=== PATIENT | female | born 1985 | race Caucasian/White ===

== ENCOUNTER 2019-02-10 16:36 | Emergency (ER) | payer BC ==
--- NOTE | 2019-02-10 17:01 | PDOC ---
History of Present Illness - General Chief Complaint: Vaginal Bleeding Stated Complaint: 9 weeks with vaginal bleeding Time Seen by Provider: 02/10/19 16:38 History Source: Patient Exam Limitations: No Limitations - History of Present Illness Initial Comments: Christiana Graves is a 33 yo f w a pmh of PCOS who is 9 weeks who comes to the ER with vaginal bleeding. The bleeding began last night. She states it was light spotting, then it stopped all day today. Then it came back later today and noticed that she was passing clots. She thinks that every time she wipes she can see a trace amount of blood. She believes she is done bleeding. She endorses sexual intercourse 2 nights ago. She endorses mild nausea but no emesis. She called her OB - Dr. Sexton - and the inspector semiconductor wafer physician Dr. Andres answered said everything was probably fine and the patient didn't need to come in but the patient was concerned so she came to be evaluated. Denies chest pain, SOB OB: Dr. Johnson PSH: None reported Social Hx: Denies smoking, drinking, or other substance abuse Allergies: NKA, NKDA Past History - Past Medical History Allergies/Adverse Reactions: Allergies Allergy/AdvReac Type Severity Reaction Status Date / Time No Known Allergies Allergy Verified 02/10/19 16:55 Home Medications: Ambulatory Orders NK [No Known Home Medication] 02/10/19 COPD: No Other medical history: PCOS - Psycho Social/Smoking Cessation Hx Smoking History: Never smoked Hx Alcohol Use: No Drug/Substance Use Hx: No Review of Systems - Review of Systems Able to Perform ROS?: Yes Comments:: CONSTITUTIONAL: Absent: fever, no chills, no fatigue EYES: Absent: visual changes ENT: Absent: ear pain, no sore throat CARDIOVASCULAR: Absent: chest pain, no palpitations RESPIRATORY: Absent: cough, no SOB GI: Present: nausea Absent: abdominal pain, no vomiting, no constipation, no diarrhea GENITOURINARY: Present: Vaginal bleeding Absent: dysuria, no frequency, no hematuria MUSKULOSKELETAL: Absent: back pain, no arthralgia, no myalgia SKIN: Absent: rash NEURO: Absent: headache *Physical Exam - Vital Signs Last Vital Signs Temp Pulse Resp BP Pulse Ox 98.1 F 87 18 136/81 100 02/10/19 16:37 02/10/19 16:37 02/10/19 16:37 02/10/19 16:37 02/10/19 16:37 - Physical Exam Comments: GENERAL: Well-appearing, well-nourished. No apparent distress. HEENT: Normocephalic, atraumatic. PERRL, EOM intact. CARDIOVASCULAR: Normal S1, S2. Regular rate and rhythm. PULMONARY: No evidence of respiratory distress. Lungs clear to auscultation bilaterally. No wheezing, rales or rhonchi. ABDOMEN: Soft, non-distended, non-tender. EXTREMITIES: Normal ROM in all four extremities. No gross deformities. SKIN: Warm, dry. No rash NEUROLOGICAL: No focal neurological deficits. ED Treatment Course - LABORATORY CBC & Chemistry Diagram: 02/10/19 17:30 02/10/19 17:30 - RADIOLOGY Radiology Studies Ordered: Category Date Time Status TRANSVAGINAL US PREG [US] Stat Ultrasound 02/10/19 16:38 Ordered Medical Decision Making - Medical Decision Making Christiana Graves is a 33 yo f w a pmh of PCOS who is 9 weeks who comes to the ER with vaginal bleeding. The bleeding began last night. She states it was light spotting, then it stopped all day today. Then it came back later today and noticed that she was passing clots. She thinks that every time she wipes she can see a trace amount of blood. She believes she is done bleeding. She endorses sexual intercourse 2 nights ago. She endorses mild nausea but no emesis. She called her OB - Dr. Sexton - and the inspector semiconductor wafer physician Dr. Andres answered said everything was probably fine and the patient didn't need to come in but the patient was concerned so she came to be evaluated. Denies chest pain, SOB Vital Signs Temp Pulse Resp BP Pulse Ox 98.1 F 87 18 136/81 100 02/10/19 16:37 02/10/19 16:37 02/10/19 16:37 02/10/19 16:37 02/10/19 16:37 DDx IBNLT: Miscarriage - impending vs missed vs incomplete, hemolytic disease of the , electrolyte/metabolic disturbance, UTI/pyloe Plan: Labs, Urine, TVUS, Iv hydration, analgesia, supportive care, re-assess. Labs: Unremarkable. B-HC,359.9 T&S: negative TVUS: Transvaginal obstetrical ultrasound Clinical information: vaginal bleeding An intrauterine gestational sac is noted with a mean diameter of 1.7 cm suggestive of an approximate gestational age of 6 weeks 0 days. No embryonic pole or yolk sac is identified at this time. These findings probably represent an anembryonic gestation/blighted ovum versus less likely an early viable with delayed visualization of those structures. Correlate with beta hCG levels, consider close follow-up sonography. Possible 3 cm intramural leiomyoma within the uterine body ventrally. A complex 2 x 1.7 cm right ovarian cyst is noted. The left ovary appears unremarkable. No Doppler evidence of ovarian torsion, sensitivity 70%. There is no gross adnexal pathology. No free intraperitoneal fluid is seen. Re-assessment: Given the US findings it appears that this patient is likely in the process of miscarrying. Will have the patient follow up with her OB. She has an appointment on Friday Morning with Dr. Johnson. Patient has been instructed to follow up with Dr. Johnson to check the quantitative HCG and to follow up on her type and screen and to administer RHOGAM if necessary. Disposition: Home with OB FU in 2 days. Discharge - Discharge Information Problems reviewed: Yes Clinical Impression/Diagnosis: Incomplete miscarriage Condition: Stable Disposition: HOME - Admission No - Follow up/Referral Referrals: Vinny Johnson MD [Staff Physician] - - Patient Discharge Instructions Patient Printed Discharge Instructions: Dealing With Miscarriage, Threatened Additional Instructions: You came into the ER with vaginal bleeding. We did an ultrasound which showed you might be having a miscarriage. It is very important for you to follow up with your OB doctor on Friday to see what your quantitative B-HCG is and what your type and screen from the bloodwork showed to determine if you need a medication called RHOGAM. Come back to the ER immediately if you strt bleeding profusely, feel weak, pass out or have any other new or worsening concerns. Print Language: KUWAITI - Post Discharge Activity
[2019-02-10 17:04] VITALS: BP 136/81; PULSE 87; TEMP 98.1; BMI 34.7
[2019-02-10] MEDS ORDERED: ACETAMINOPHEN 325 MG TABLET (FP) PO ONE (17:05)
[2019-02-10] MEDS ORDERED: SODIUM CHLORIDE 1,000 ML IV STA (17:05)
[2019-02-10] MEDS ORDERED: ONDANSETRON 4 MG/2 ML VIAL IVPUSH ONE (17:06)
[2019-02-10] MEDS ORDERED: ACETAMINOPHEN 325 MG TABLET (FP) ONE (17:35)
[2019-02-10] MEDS ORDERED: ONDANSETRON 4 MG/2 ML VIAL ONE (17:36)
[2019-02-10 17:50] LABS: BASO % 0.4 % (0-2.0)
[2019-02-10 17:53] LABS: EOS % 1.6 % (0-4.5); HEMATOCRIT 38.9 % (32.4-45.2); HEMOGLOBIN 13.6 GM/dl (10.7-15.3); LYMPH % 22.3 % (8-40); MCH 31.3 pg (25.7-33.7); MCHC 34.9 g/dl (32.0-36.0); MEAN CELL VOLUME 89.6 fl (80-96); MEAN PLT VOLUME 8.5 fl (7.5-11.1); MONO % 5.6 % (3.8-10.2); NEUT % 70.1 % (42.8-82.8); PLATELET COUNT 278 K/MM3 (134-434); RBC 4.35 M/mm3 (3.60-5.2); RDW 11.2 % (11.6-15.6); WHITE BLOOD COUNT 8.4 K/mm3 (4.0-10.8)
[2019-02-10 18:07] LABS: ALBUMIN 4.5 g/dl (3.4-5.0); BILIRUBIN,TOTAL 0.8 mg/dl (0.2-1); CALCIUM 8.8 mg/dl (8.5-10); CREATININE 0.6 mg/dl (0.55-1.3); POTASSIUM 3.6 mmol/L (3.5-5.1); TOT PROT 7.7 g/dl (6.4-8.2)
[2019-02-10 18:11] LABS: INR 1.1 (0.82-1.09); PROTHROMBIN TIME (PATIENT) 12.3 SEC (10.2-13.0)
== END 2019-02-10 18:49 | disposition home or self-care (01) ==
LOC: FER 16:36
PROC: 3E0337Z Introduction of Electrolytic and Water Balance Substance into Peripheral Vein, Percutaneous Approach (ICD-10-PCS; principal; 2019-02-10)
DX: O03.4 Incomplete spontaneous abortion without complication (principal); E28.2 Polycystic ovarian syndrome
CPT/HCPCS: 36415; 76817-TC; 80053; 84702; 85025; 85610; 85730; 86850; 86900; 86901; 99282-25; J7030

== ENCOUNTER 2019-02-13 10:40 | Emergency (ER) | payer BC ==
[2019-02-13 10:57] VITALS: BP 129/76; PULSE 75; TEMP 98.2; BMI 34.7
[2019-02-13] MEDS ORDERED: RHO(D) IMMUNE GLOBULIN 1,500 UNIT DISP.SYRIN IM ONE (11:00)
--- NOTE | 2019-02-13 11:08 | PDOC ---
History of Present Illness - General Chief Complaint: Pain Stated Complaint: VACCINE Time Seen by Provider: 02/13/19 10:53 History Source: Patient Exam Limitations: No Limitations (33y/o F for rhogam infection, RH neg noted on labs. Pt has no complaints) - History of Present Illness Is this a multiple visit Asthma Patient?: No Past History - Travel Traveled outside of the country in the last 30 days: No Close contact w/someone who was outside of country & ill: No - Past Medical History Allergies/Adverse Reactions: Allergies Allergy/AdvReac Type Severity Reaction Status Date / Time No Known Allergies Allergy Verified 02/13/19 10:50 Home Medications: Ambulatory Orders NK [No Known Home Medication] 02/10/19 COPD: No - Reproductive History (#): 1 Para: 0 Spontaneous : 0 - Psycho Social/Smoking Cessation Hx Smoking History: Never smoked Hx Alcohol Use: No Drug/Substance Use Hx: No Review of Systems - Review of Systems Able to Perform ROS?: Yes Is the patient limited Russian proficient: No Constitutional: No: Chills, Fever ABD/GI: No: Abdominal Distended, Abdominal cramping *Physical Exam - Vital Signs Last Vital Signs Temp Pulse Resp BP Pulse Ox 98.2 F 75 18 129/76 99 02/13/19 10:53 02/13/19 10:53 02/13/19 10:53 02/13/19 10:53 02/13/19 10:53 - Physical Exam General Appearance: Yes: Nourished Neurologic: positive: cord cutter II-XII NML intact, Fully Oriented, Alert, Normal Mood/ Affect, Normal Response, Motor Strength 5/5 Medical Decision Making - Medical Decision Making 02/13/19 11:09 33y/o F for rhogam injection O neg blood threatened ab on last visit pt left before labs was resulted she was called back today no complaints Discharge - Discharge Information Problems reviewed: Yes Clinical Impression/Diagnosis: Encounter for prophylactic administration of RhoGAM Condition: Stable Disposition: HOME - Admission No - Additional Discharge Information Prescription Drug Monitoring Program (I-STOP) results: I-STOP not reviewed - Follow up/Referral Referrals: Vinny Johnson MD [Primary Care Provider] - - Patient Discharge Instructions Additional Instructions: I discussed the physical exam findings, ancillary test results and final diagnoses with the patient. I answered all of the patient's questions. The patient was satisfied with the care received and felt comfortable with the discharge plan and treatment plan. The patient will call their primary care physician within 24 hours to arrange follow-up and will return to the Emergency Department with any new, persistant or worsening symptoms. Please follow up with your CARD FILER - Post Discharge Activity
--- NOTE | 2019-02-16 09:59 | HP ---
History & Physical Update - Physical Physical: No Change - Assessment Assessment: No Change - Plan Plan: No Change (H&P reviwed , no changes , for suction D&C)
== END 2019-02-13 13:45 | disposition home or self-care (01) ==
LOC: JERFT 10:40
PROC: 3E0234Z Introduction of Serum, Toxoid and Vaccine into Muscle, Percutaneous Approach (ICD-10-PCS; principal; 2019-02-13)
DX: O36.0190 Maternal care for anti-D [Rh] antibodies, unspecified trimester, not applicable or unspecified (principal); Z29.13 Encounter for prophylactic Rho(D) immune globulin
CPT/HCPCS: 86850; 86900; 86901; 86999; 99281-25; J1561

== ENCOUNTER 2019-02-16 09:20 | Day surgery (SDC) | payer BC ==
[2019-02-15 15:09] VITALS: BMI 34.7
[2019-02-16] MEDS ORDERED: PROPOFOL 20 ML ONE (10:30)
[2019-02-16] MEDS ORDERED: LIDOCAINE HCL/PF 2% SDV 5ML VIAL ONE (10:30)
[2019-02-16] MEDS ORDERED: MIDAZOLAM HCL 2 MG/2 ML SINGLE DOSE VIAL ONE (10:30)
[2019-02-16] MEDS ORDERED: IBUPROFEN 800 MG/8 ML IJ IVPB PRN ×2 (10:33→11:11)
[2019-02-16] MEDS ORDERED: ONDANSETRON 4 MG/2 ML VIAL IVPUSH PRN ×2 (10:33→11:11)
[2019-02-16] MEDS ORDERED: LACTATED RINGERS SOLUTION 1,000 ML IV SCH (10:45)
[2019-02-16] MEDS ORDERED: KETOROLAC TROMETHAMINE 30 MG/1 ML VIAL ONE (10:46)
[2019-02-16] MEDS ORDERED: IBUPROFEN 600 MG TABLET (FP) PO PRN (11:11)
[2019-02-16] MEDS ORDERED: oxyCODONE HCL 5 MG TABLET PO PRN (11:11)
--- NOTE | 2019-02-16 11:14 | HP ---
History & Physical Update - Physical Physical: No Change - Assessment Assessment: No Change - Plan Plan: No Change (H&P reviewed , no changes. for suction D&C)
[2019-02-16] MEDS ORDERED: ELECTROLYTE-148 SOLN 1,000 ML IV SCH (11:15)
--- NOTE | 2019-02-16 11:16 | OP ---
Operative Note - Note: Operative Date: 02/16/19 Pre-Operative Diagnosis: missed Operation: suction D&C Findings: cx closed , blood clots at the os , uterus 8 weeks, no masses Surgeon: Vinny Johnson Anesthesiologist/SANITATION WORKER CLEANING MACHINERY: Samanta Fox Specimens Removed: uterine content Estimated Blood Loss (mls): 50 Blood Volume Replaced (mls): 0 Operative Report Dictated: Yes
[2019-02-16 12:03] VITALS: TEMP 98.1
[2019-02-16 12:48] VITALS: BP 106/61; PULSE 68
--- NOTE | 2019-02-16 14:02 | OP ---
DATE OF OPERATION: 02/16/2019 PREOPERATIVE DIAGNOSIS: Missed . POSTOPERATIVE DIAGNOSIS: Missed . PROCEDURE: Suction dilation and curettage. SURGEON: Vinny Johnson MD ANESTHESIA: General. ANESTHESIOLOGIST: CAMRYN Casey ESTIMATED BLOOD LOSS: 50 mL FINDINGS: Vagina moderate amount of blood. Cervix os was closed with a blood clot at the os. Uterus was 8-week size anteverted. Adnexa no masses were palpable. PROCEDURE: Then with the weighted speculum in the vagina anterior lip of the cervix was grasped with the single-tooth tenaculum and the cervix was gradually dilated with Hegar dilators, then the suction curette was inserted and the content was suctioned. Patient tolerated the procedure well, left the OR in good condition. Jhon [id number]
== END 2019-02-16 12:40 | disposition home or self-care (01) ==
LOC: JASU-SURG 09:20
PROVIDERS: ATTEND Obstetrics & Gynecology
PROC: 10D17ZZ Extraction of Products of Conception, Retained, Via Natural or Artificial Opening (ICD-10-PCS; principal; 2019-02-16 11:00)
DX: O02.1 Missed abortion (principal)
CPT/HCPCS: 94760

== ENCOUNTER 2019-07-06 05:54 | Day surgery (SDC) | payer BC ==
[2019-07-05 17:30] VITALS: BMI 36.6
--- NOTE | 2019-07-06 07:32 | HP ---
History & Physical Update - History History: No Change (H&P reviwed, no changes ,for suction D&C) - Physical Physical: No Change - Assessment Assessment: No Change - Plan Plan: No Change
[2019-07-06] MEDS ORDERED: MIDAZOLAM HCL 2 MG/2 ML SINGLE DOSE VIAL ONE (07:47)
[2019-07-06] MEDS ORDERED: PROPOFOL 20 ML ONE ×3 (07:55)
[2019-07-06] MEDS ORDERED: SUCCINYLCHOLINE CHLORIDE 200 MG/10 ML SYRINGE ONE (07:55)
[2019-07-06] MEDS ORDERED: ceFAZolin SODIUM 1 GM VIAL IVPB ONE (08:30)
[2019-07-06] MEDS ORDERED: ceFAZolin SODIUM 1 GM VIAL ONE (08:32)
[2019-07-06] MEDS ORDERED: DEXAMETHASONE SOD PHOSPHATE 4 MG/1 ML VIAL ONE (08:32)
[2019-07-06] MEDS ORDERED: KETOROLAC TROMETHAMINE 30 MG/1 ML VIAL ONE (08:32)
[2019-07-06] MEDS ORDERED: IBUPROFEN 800 MG/8 ML IJ IVPB PRN (08:51)
[2019-07-06] MEDS ORDERED: oxyCODONE HCL 5 MG TABLET PO PRN ×3 (08:51→08:56)
[2019-07-06] MEDS ORDERED: ONDANSETRON 4 MG/2 ML VIAL IVPUSH PRN ×2 (08:51→08:56)
[2019-07-06] MEDS ORDERED: IBUPROFEN 600 MG TABLET (FP) PO PRN (08:51)
[2019-07-06] MEDS ORDERED: ACETAMINOPHEN 325 MG TABLET (FP) PO PRN (08:56)
[2019-07-06] MEDS ORDERED: LACTATED RINGERS SOLUTION 1,000 ML IV SCH (09:00)
[2019-07-06] MEDS ORDERED: ELECTROLYTE-148 SOLN 1,000 ML IV SCH (09:00)
--- NOTE | 2019-07-06 09:04 | OP ---
Operative Note - Note: Operative Date: 07/06/19 Pre-Operative Diagnosis: missed , twins Operation: suction D&C Findings: cx closed , uterus 10 weeks, no masses Post-Operative Diagnosis: Same as Pre-op Surgeon: Vinny Johnson Anesthesiologist/ROLE PLAYER: Gala Sanchez Anesthesia: General Specimens Removed: POC Estimated Blood Loss (mls): 50 Drains & Tubes with Location: none Blood Volume Replaced (mls): 0 Operative Report Dictated: Yes
--- NOTE | 2019-07-06 10:36 | OP ---
DATE OF OPERATION: 07/06/2019 PREOPERATIVE DIAGNOSIS: Missed , twin . POSTOPERATIVE DIAGNOSIS: Missed , twin . PROCEDURE: Suction dilation and curettage. SURGEON: Vinny Johnson MD ANESTHESIA: General. ANESTHESIOLOGIST: Gala Sanchez MD ESTIMATED BLOOD LOSS: 50 mL. DESCRIPTION OF PROCEDURE: Patient was taken to the operating room under adequate general anesthesia in dorsal lithotomy position. Abdomen, perineum, and vagina were prepped and draped. Examination under anesthesia revealed external genitalia to be normal. Cervix was closed. No lesion. No bleeding. Uterus was 10 weeks' size mid pelvis area. No adnexal masses were palpable. Then with a weighted speculum in the vagina, anterior lip of the cervix was grasped with a single-tooth tenaculum. Cervix was gradually dilated with Hegar dilators and then suction curette size 9 was inserted into uterine cavity and the contents was suctioned. The contents was sent for genetic testing. Estimated blood loss 50 mL. Patient tolerated procedure well. Left the OR in good condition. VINNY JOHNSON M.D. [id number]
[2019-07-06 11:51] VITALS: BP 110/79; PULSE 69; TEMP 97.9
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
== END 2019-07-06 10:50 | disposition home or self-care (01) ==
LOC: JASU-SURG 05:54
PROVIDERS: ATTEND Obstetrics & Gynecology
PROC: 10D17ZZ Extraction of Products of Conception, Retained, Via Natural or Artificial Opening (ICD-10-PCS; principal; 2019-07-06 08:00)
DX: O02.1 Missed abortion (principal)
CPT/HCPCS: 86850; 86870; 86900; 86901; 86902; 88305-TC; 94760